=== PATIENT | male | born 1970 | race Caucasian/White ===

== ENCOUNTER 2016-11-20 19:31 | Emergency (ER) | payer BC ==
[~2016-11-20] VITALS: Ht 188 cm; Wt 116.6 kg
[2016-11-20] MEDS ORDERED: ROBAXIN750 MG PO (20:09)
[2016-11-20 20:32] LABS: ADD MIUA? NO; BILIRUBIN NEGATIVE; BLOOD NEGATIVE; COLOR STRAW ((YELLOW)); GLUCOSE (STRIP) NEGATIVE; KETONES NEGATIVE; LEUKOCYTES NEGATIVE; NITRITE NEGATIVE; PROTEIN (STRIP) NEGATIVE; SPECIFIC GRAVITY 1.008 (1.000-1.030); UCUL ADDED? NO; UROBILINOGEN 0.2 MG/DL (0.2-1.0)
[2016-11-20 21:11] LABS: EOSINOPHIL (%) 1.2 % (0-5); EOSINOPHIL COUNT 0.1 K/uL (0-0.3); HEMATOCRIT 43.5 % (38.0-50.0); IMMATURE GRANULOCYTE (%) 0.1 % (0.0-0.7); LYMPHOCYTE COUNT 3.1 K/uL (1.0-2.8); MCH 29.7 PG (29.0-34.0); MCHC 32.9 G/DL (30.0-36.0); MCV 90.2 FL (86-99); MEAN PLAT.VOLUME 11.4 uM^3 (9.0-12.4); MONOCYTE (%) 8.8 % (3-12); MONOCYTE COUNT 0.6 K/uL (0-0.8); NEUTROPHIL (%) 44.1 % (45-76); PLATELET COUNT 184 K/uL (156-360); RBC DIS.WIDTH-CV 12.4 % (11.8-14.6); RBC DIS.WIDTH-SD 40.6 % (39-53); RED BLOOD COUNT 4.82 M/uL (4.00-5.50); WHITE BLOOD COUNT 6.9 K/uL (4.1-10.2)
[2016-11-20 21:23] LABS: CHLORIDE 100 mEq/L (99-109); POTASSIUM 4.3 mEq/L (3.7-5.4); SODIUM 140 mEq/L (136-147)
[2016-11-20 21:25] LABS: GLUCOSE 80 mg/dL (70-99)
[2016-11-20 21:27] LABS: ANION GAP 9 MEQ/L (2-14); TOTAL BILIRUBIN 0.5 mg/dL (0.0-1.0)
[2016-11-20 21:29] LABS: ALKALINE PHOSPHATASE 71 IU/L (3-129); GFR ESTIMATE (CALCULATED) > 59 mL/min/
[2016-11-20 21:30] LABS: UREA NITROGEN (BUN) 14 mg/dL (9-23)
[2016-11-20 21:33] LABS: LIPASE 5 U/L (1.0-51.0)
[2016-11-21] MEDS ORDERED: NORCO 7.5/321 TABLET PO (00:47)
[2016-11-21] MEDS ORDERED: MOTRIN800 MG PO (00:47)
[2016-11-21] MEDS ORDERED: KEFLEX500 MG PO (00:47)
[2016-11-21 01:04] VITALS: BP 144/86
== END 2016-11-21 01:04 | disposition home or self-care (01) ==
LOC: EME 19:31
PROVIDERS: Physician Assistant
DX: N20.0 Calculus of kidney (principal); N28.1 Cyst of kidney, acquired
CPT/HCPCS: 74176; 80053; 81003; 83690; 85025; 87086; 99281; 99285; J0696; J1885; J3010; J7050

== ENCOUNTER 2017-03-27 12:04 | Emergency (ER) | payer BC ==
[~2017-03-27] VITALS: Ht 185.4 cm; Wt 119.7 kg
[~2017-03-27 12:04] MED LIST: KEFLEX500 MG PO; MOTRIN800 MG PO; NORCO 7.5/321 TABLET PO; ROBAXIN750 MG PO
[2017-03-27 12:38] LABS: HEMATOCRIT 44.7 % (38.0-50.0); HEMOGLOBIN 15.2 G/DL (12.5-16.6); MCV 91.2 FL (86-99); PLATELET COUNT 141 K/uL (156-360); RBC DIS.WIDTH-CV 12.7 % (11.8-14.6); RBC DIS.WIDTH-SD 42.3 % (39-53)
[2017-03-27 12:50] LABS: CHLORIDE 102 mEq/L (99-109); SODIUM 139 mEq/L (136-147)
[2017-03-27 12:52] LABS: GLUCOSE 95 mg/dL (70-99)
[2017-03-27 12:56] LABS: GFR ESTIMATE (CALCULATED) > 59 mL/min/ (58.99-99999)
[2017-03-27 12:57] LABS: UREA NITROGEN (BUN) 16 mg/dL (9-23)
[2017-03-27 13:02] LABS: TROP-I INTERPRETATION NEGATIVE; TROPONIN-I < 0.01 ng/mL (0.0-0.30)
[2017-03-27 16:28] LABS: TROP-I INTERPRETATION NEGATIVE; TROPONIN-I < 0.01 ng/mL (0.0-0.30)
[2017-03-27 18:00] VITALS: BP 138/83
== END 2017-03-27 18:28 | disposition home or self-care (01) ==
LOC: EME 12:04
PROVIDERS: Nurse Practitioner Family
DX: R07.9 Chest pain, unspecified (principal); J06.9 Acute upper respiratory infection, unspecified
CPT/HCPCS: 71046; 80048; 84484; 85027; 93005; 99281; 99283